=== PATIENT | female | born 1945 | race Caucasian/White ===

== ENCOUNTER 2025-04-05 09:51 | Emergency (ER) | payer OTHER ==
[~2025-04-05] VITALS: Ht 170.2 cm; Wt 63.0 kg
[~2025-04-05 09:51] MED LIST: ANAS1TAB49 PO; ASPI-1160 PO; ATEN50TA PO; CLOP-31 PO; HYDR200T80 PO; LISI10TA26 PO; METH2.5T PO; NITR0.4T SL; OXYQ1POW MC; PRAV40TA58 PO
[2025-04-05 09:55] VITALS: O2SAT 98
[2025-04-05] MEDS: KETOROLAC 15MG/ML VIAL IV ONE (10:43)
[2025-04-05 11:03] LABS: BASOPHILS % 0.5 % (0.0-2.0); EOSINOPHILS % 1.1 % (0.0-5.0); HEMATOCRIT. 34.8 % (36.0-48.0); HEMOGLOBIN. 11.7 g/dL (12.0-16.0); LYMPHOCYTES % 25.3 % (20.0-50.0); MEAN PLATELET VOLUME 9.0 fl (7.4-10.4); MONOCYTES % 7.1 % (2.0-8.0); NEUTROPHILS % 66.0 % (40.0-76.0); PLATELET 200 x1000/uL (130-400); RED BLOOD CELL COUNT 3.37 mill/uL (4.2-5.4); RED CELL DISTRIBUTION WIDTH 13.3 % (11.6-14.6)
[2025-04-05 11:25] LABS: CREATININE 0.7 mg/dL (0.6-1.0); UREA NITROGEN BLOOD 12 mg/dL (9-23)
[2025-04-05 14:10] VITALS: BP 120/66; PULSE 64; RESP 16; TEMP 36.9; O2SAT 100
== END 2025-04-05 14:33 | disposition short-term general hospital (02) ==
LOC: ER 09:51 → CANBEDREQ 12:21 → ER 14:33
DX: M25.561 Pain in right knee (principal); M25.461 Effusion, right knee; Z79.899 Other long term (current) drug therapy; Z98.890 Other specified postprocedural states
CPT/HCPCS: 99285; 96374; 80048; 85025; 36415; 73560; J1885